=== PATIENT | male | born 1985 | race Native Hawaiian/Other Pacific Islander ===

== ENCOUNTER 2023-03-24 13:40 | Emergency (ER) | payer SELFPAY ==
[2023-03-24 13:51] VITALS: BP 160/90; O2SAT 100
[2023-03-24 14:05] LABS: BILIRUBIN,URINE NEGATIVE (NEGATIVE); GLUCOSE, URINE (UA) NEGATIVE (NEGATIVE); KETONES,URINE (UA) NEGATIVE (NEGATIVE); LEUKOCYTE ESTERASE, URINE NEGATIVE (NEGATIVE); NITRITE,URINE NEGATIVE (NEGATIVE); OCCULT BLOOD,URINE LARGE (NEGATIVE); PH,URINE 6.5 PH (5.0-7.5); PROTEIN,URINE TRACE mg/dL (NEGATIVE); UROBILINOGEN,URINE 0.2 (NORMAL) E.U./dL (NORMAL)
[2023-03-24 14:06] LABS: BASOPHILS # (AUTO) 0.1 10^3/uL (0.0-0.1); BASOPHILS % (AUTO) 0.7 %; EOSINOPHILS # (AUTO) 0.2 10^3/uL (0.0-0.7); EOSINOPHILS % (AUTO) 2.1 %; HGB - HEMOGLOBIN 15.6 g/dL (14.0-18.0); LYMPHOCYTES # (AUTO) 2.2 10^3/uL (1.5-3.5); MEAN CORPUSCULAR HEMOGLOBIN 29.3 pg (27.0-31.0); MEAN CORPUSCULAR HGB CONC 32.5 g/dL (32.0-36.0); MEAN CORPUSCULAR VOLUME 90.1 fL (80.0-94.0); MEAN PLATELET VOLUME 9.9 fL (7.4-11.4); MONOCYTES # (AUTO) 0.9 10^3/uL (0.0-1.0); MONOCYTES % (AUTO) 9.6 %; NEUTROPHILS # (AUTO) 6.2 10^3/uL (1.5-6.6); PLT - PLATELET COUNT 241 10^3/uL (130-450); RED BLOOD COUNT 5.33 10^6/uL (4.70-6.10); WHITE BLOOD COUNT 9.7 x10^3/uL (4.8-10.8)
[2023-03-24 14:09] LABS: CLARITY,URINE HAZY (CLEAR)
[2023-03-24 14:13] LABS: BACTERIA,URINE Few /HPF (None Seen); RBC,URINE TNTC /HPF (0-5); SQUAMOUS EPITHELIAL CELL,UR RARE Squamous (<= Few)
[2023-03-24 14:21] LABS: ALBUMIN 4.6 g/dL (3.2-5.5); ALBUMIN/GLOBULIN RATIO 1.5 (1.0-2.2); BILIRUBIN,TOTAL 0.6 mg/dL (0.2-1.0); CALCIUM 9.5 mg/dL (8.5-10.3); POTASSIUM 3.9 mmol/L (3.5-4.5); TOTAL PROTEIN 7.7 g/dL (6.4-8.9)
--- NOTE | 2023-03-24 14:58 | ED Physician Documentation ---
PD HPI ABD PAIN - Stated complaint Stated Complaint: ABD PX,CRAMP - Chief complaint Chief Complaint: Abd Pain - History obtained from History obtained from: Patient - History of Present Illness Timing - onset: Today Quality: Cramping, Sharp Location: LLQ Radiation: Left flank - Additional information Additional information: Patient recently moved here from [place] about 3 to 4 weeks ago he says he does have a history of kidney stones has been told that he is prediabetic that he has been eating the best throughout the holidays and has been having intermittent abdominal cramping. Today while eating lunch around noon he was eating a tuna sandwich and started to experience sudden severe left lower quadrant abdominal pain radiating to his left flank. He took some Tylenol pain is now fully resolved no nausea or vomiting or diarrhea no recent fevers or chills no difficulty with urination PD PAST MEDICAL HISTORY - Past Medical History Past Medical History: No Cardiovascular: None Respiratory: None Neuro: None Endocrine/Autoimmune: None GI: None : None HEENT: None Psych: None Musculoskeletal: None Derm: None - Past Surgical History Past Surgical History: Yes - Present Medications Home Medications: Ambulatory Orders Medication Instructions Recorded Confirmed oxyCODONE [Roxicodone] 5 mg PO Q4-6H PRN #15 tablet 03/24/23 - Allergies Allergies/Adverse Reactions: Allergies Allergy/AdvReac Type Severity Reaction Status Date / Time No Known Drug Allergies Allergy Verified 03/24/23 13:44 - Social History Does the pt smoke?: No Smoking Status: Former smoker Does the pt drink ETOH?: No Does the pt have substance abuse?: Yes Substance Use and Type: Marijuana - Immunizations Immunizations are current?: Yes PD ED PE NORMAL - Vitals Vital signs reviewed: Yes - General General: Alert and oriented X 3 - Respiratory Respiratory: No: No respiratory distress - Abdomen Abdomen: Normal bowel sounds, Soft (Mild pain with palpation to left lower quadrant no rebound tenderness no guarding), Non distended - Psych Psych: Normal mood Results - Vitals Vitals: Vital Signs - 24 hr 03/24/23 13:45 Temperature 36.5 C Heart Rate 63 Respiratory 16 Rate Blood Pressure 160/90 H O2 Saturation 100 Oxygen O2 Source Room air - Labs Labs: Laboratory Tests 03/24/23 03/24/23 03/24/23 13:55 14:00 14:00 WBC 9.7 RBC 5.33 Hgb 15.6 Hct 48.0 MCV 90.1 MCH 29.3 MCHC 32.5 RDW 13.0 Plt Count 241 MPV 9.9 Neut # (Auto) 6.2 Lymph # (Auto) 2.2 Tensas # (Auto) 0.9 Eos # (Auto) 0.2 Baso # (Auto) 0.1 Absolute Nucleated RBC 0.00 Nucleated RBC % 0.0 Sodium 139 Potassium 3.9 Chloride 103 Carbon Dioxide 30 Anion Gap 6.0 BUN 12 Creatinine 1.0 Estimated GFR (MDRD) 84 L Glucose 127 H Calcium 9.5 Total Bilirubin 0.6 AST 20 ALT 25 Alkaline Phosphatase 65 Total Protein 7.7 Albumin 4.6 Globulin 3.1 Albumin/Globulin Ratio 1.5 Lipase 20 Urine Color YELLOW Urine Clarity HAZY Urine pH 6.5 Ur Specific Cuervo 1.020 Urine Protein TRACE Urine Glucose (UA) NEGATIVE Urine Ketones NEGATIVE Urine Occult Blood LARGE H Urine Nitrite NEGATIVE Urine Bilirubin NEGATIVE Urine Urobilinogen 0.2 (NORMAL) Ur Leukocyte Esterase NEGATIVE Urine RBC TNTC H Urine WBC 4-5 Ur Squamous Epith Cells RARE Squamous Urine Bacteria Few Ur Microscopic Review INDICATED Urine Culture Comments NOT INDICATED PD Medical Decision Making - ED course ED course: Patiently recently moved here from [place] has not been able to establish care with primary care provider thus far. He reports last kidney stone he had was about 6 months ago he passed without any difficulty. He was offered a CT scan for further evaluation of possible kidney stone but given the long wait time and patient said that he would rather go home continue to monitor and signs symptoms. His pain is fully resolved no recurrence of pain since he has been here so most likely I believe that patient is experiencing renal colic from kidney stone patient says this feels very similar to last time he had a kidney stone as well. He is given a list of local primary care providers to establish care with and given strict return precautions. A prescription of opioids was sent to his preferred pharmacy he was told to only take it with recurrence of pain and to not take it while working or driving and always take stool softeners with it. He has had no recent fevers or chills. At this time safe for discharge all questions answered. Departure - Departure Disposition: 01 Home, Self Care Instructions: Abdominal Pain, Kidney Stones Prescriptions: oxyCODONE [Roxicodone] 5 mg PO Q4-6H PRN #15 tablet PRN Reason: Pain Comments: Thank you for trusting us with your care as we discussed we offered to do a CT scan but given the long wait times he wanted to go ahead and go home and continue to monitor your pain outpatient. The nurses sending home with a strainer to see if you are able to catch a kidney stone you can bring this in if you are able to establish care with her primary care provider for possible further testing. Make sure that you are drinking plenty of water going home and eating a healthy well-balanced diet avoiding salty and sugary foods. Please establish care with a primary care provider soon as possible. We have sent a prescription of oxycodone to your preferred pharmacy make sure that you are not driving or working or operating heavy machinery while taking oxycodone and you are taking a stool softener with it to prevent against constipation. Please come back to the emergency department if you are having ongoing left lower quadrant or worsening abdominal pain or any other new concerning symptoms. Forms: PCP List Discharge Date/Time: 03/24/23 15:40
== END 2023-03-24 15:40 | disposition home or self-care (01) ==
LOC: ED 13:40
DX: R10.32 Left lower quadrant pain (principal); R31.9 Hematuria, unspecified; Z87.891 Personal history of nicotine dependence
CPT/HCPCS: 36415; 80053; 81001; 81003; 83690; 85025; 87086; 99283